=== PATIENT | male | born 1950 | race Caucasian/White ===

== ENCOUNTER 2018-01-27 11:01 | Observation (INO) | payer MEDICARE, BC ==
[2018-01-26 17:45] LABS: BASOPHILS # (AUTO) 0.1 (0.0-0.1); BASOPHILS % 0.9 % (0.0-1.0); EOSINOPHILS # (AUTO) 0.3 (0.0-0.4); EOSINOPHILS % 2.8 % (0.0-6.0); HEMATOCRIT 44.2 % (38.2-49.6); HEMOGLOBIN 15.7 g/dL (14.0-18.0); LYMPHOCYTES # (AUTO) 2.8 (1.0-3.2); LYMPHOCYTES % 31.9 % (18.0-39.1); MEAN CORPUSCULAR HGB CONC 35.5 g/dL (31-35); MEAN CORPUSCULAR VOLUME 98.7 fL (81-99); MONOCYTES # (AUTO) 0.6 (0.2-0.8); MONOCYTES % 6.5 % (4.4-11.3); NEUTROPHILS # (AUTO) 5.1 (2.1-6.9); NEUTROPHILS % 57.6 % (38.7-80.0); PLATELET COUNT 149 x10e3/uL (140-360); RED BLOOD COUNT 4.48 x10e6/uL (4.3-5.7); RED CELL DISTRIBUTION WIDTH 12.9 % (11.7-14.4)
[2018-01-26 17:55] LABS: INR 1.02; PROTHROMBIN TIME 12.6 seconds (11.9-14.5)
[2018-01-26 17:56] LABS: PARTIAL THROMBOPLASTIN TIME 26.9 seconds (23.8-35.5)
--- NOTE | 2018-01-26 18:11 | Diagnostic Imaging Report ---
PROCEDURE: Frontal and lateral views of the chest. COMPARISON: None. INDICATIONS: PRE OP LUMBAR LAMINECTOMY FINDINGS: Lines/tubes: None. Lungs: The lungs are well inflated and clear. There is no evidence of pneumonia or pulmonary edema. Pleura: There is no pleural effusion or pneumothorax. Heart and mediastinum: The heart and the mediastinum are normal. Bones: No acute bony abnormality. IMPRESSION: 1. No acute cardiopulmonary abnormality. Luis Sandoval M.D. Dictated by: Luis Sandoval M.D. on 01/26/2018 at 18:12 Electronically approved by: Luis Sandoval M.D. on 01/26/2018 at 18:12
[~2018-01-27] VITALS: Ht 182.9 cm; Wt 90.0 kg
[~2018-01-27 11:01] MED LIST: ALLOPURINOL100 MG PO; BIOTIN2500 MCG PO; ESIDRIX25 MG PO; GLUCOSA-CHOND-1 EACH PO; LIDOCAINE HCL (LTA) 4 ML SOLN ONE; LYSINE500 MG PO; OMEPRAZOLE40 MG PO; PHILLIPS' COLO1 EACH PO; POTASSIUM CHLO20 ME1 PO
--- OUTSIDE RECORDS SUMMARY | 2018-01-27 11:04 | XMS REPORT ---
Author Author [facility] Address Unknown Phone Unavailable Care Team Providers Care Bowling Alley Manager Name Role Phone EDUARDO BAUGH Unavailable Unavailable Problems This patient has no known problems. Allergies, Adverse Reactions, Alerts This patient has no known allergies or adverse reactions. Medications This patient has no known medications. Results Test Description Test Time Test Comments Text Results Atomic Results Result Comments CHEST 2 VIEWS [place] [address] Patient Name: DAMARIS LEYVA MR #: [id number] : 1950 Age/Sex: 67/M Req # : [id number] Adm Physician: Ordered by: EDUARDO BAUGH MD Report #: [id number] Location: OR Room/Bed: Procedure: [id number] DX/CHEST 2 VIEWS Exam Date: 01/26/18 Exam Time: 1750 REPORT STATUS: Signed PROCEDURE: Frontal and lateral views of the chest. COMPARISON: None. INDICATIONS: PRE OP LUMBAR LAMINECTOMY FINDINGS: Lines/tubes: None. Lungs: The lungs are well inflated and clear. There is no evidence of pneumonia or pulmonary edema. Pleura: There is no pleural effusion or pneumothorax. Heart and mediastinum: The heart and the mediastinum are normal. Bones: No acute bony abnormality. IMPRESSION: 1. No acute cardiopulmonary abnormality. Ton Sandoval M.D. Dictated by: Ton Sandoval M.D. on 01/26/2018 at 18:12 Electronically approved by: Ton Sandoval M.D. on 01/26/2018 at 18:12 Dictated By: TON SANDOVAL MD 11 Transcribed By: IVANA on 01/26/181811 COPY TO: EDUARDO BAUGH MD
[2018-01-27] MEDS ORDERED: CEFAZOLIN SOD 2 GM/D5W 50ML 50 ML IV ONE (11:08)
[2018-01-27] MEDS ORDERED: BACITRACIN 50,000 UNIT VIAL ONE (11:17)
[2018-01-27] MEDS ORDERED: THROMBIN FOR SOLN 5,000 UNIT VIAL ONE (11:17)
[2018-01-27] MEDS ORDERED: GELATIN SPONGE SZ 100 ONE (11:17)
[2018-01-27] MEDS ORDERED: BUPIVACAINE 0.5%/EPI 30 ML SDV INJ ONE (11:17)
[2018-01-27 11:37] LABS: ANION GAP 15.8 mmol/L (8-16); BLOOD UREA NITROGEN 5 mg/dL (7-26); BUN/CREATININE RATIO 6 (6-25); CALCIUM 9.2 mg/dL (8.4-10.2); CARBON DIOXIDE 24 mmol/L (22-29); CHLORIDE 104 mmol/L (98-107); CREATININE, SERUM 0.82 mg/dL (0.72-1.25); EST GLOMERULAR FILTRATION RATE > 60 ML/MIN (60-); GLUCOSE 129 mg/dL (74-118); POTASSIUM 3.8 mmol/L (3.5-5.1); SODIUM 140 mmol/L (136-145)
[2018-01-27] MEDS: LACTATED RINGER'S 1,000 ML IV SCH ×2 (14:01→22:21)
[2018-01-27] MEDS ORDERED: MAGNESIUM/ALUMINUM/SIMETHICONE 30 ML UDC PO PRN (14:15)
[2018-01-27] MEDS ORDERED: MORPHINE SULFATE 5 MG/ML VIAL IM PRN (14:15)
[2018-01-27] MEDS ORDERED: ACETAMINOPHEN 325 MG TAB PO PRN (14:15)
[2018-01-27] MEDS ORDERED: PROMETHAZINE HCL (IM) 25 MG/ML VIAL IM PRN (14:15)
[2018-01-27] MEDS ORDERED: ONDANSETRON HCL INJ 2 MG/ML VIAL IV PRN (14:15)
[2018-01-27] MEDS ORDERED: ZOLPIDEM TARTRATE 5 MG TAB PO PRN (14:15)
[2018-01-27] MEDS ORDERED: FENTANYL CITRATE/PF 100MCG/2 ML INJ ONE ×2 (14:21→18:01)
[2018-01-27] MEDS ORDERED: ONDANSETRON HCL 4 MG ORAL DISINTEGRATING TAB PO PRN (14:30)
[2018-01-27] MEDS ORDERED: MORPHINE SULFATE 2 MG/ML SYR IM PRN (14:30)
--- NOTE | 2018-01-27 14:42 | Operative Report ---
DATE OF PROCEDURE: January 27, 2018 PREOPERATIVE DIAGNOSIS: Right L4-L5 disk herniation with radiculopathy, M51.16. POSTOPERATIVE DIAGNOSIS: Right L4-L5 disk herniation with radiculopathy, M51.16. PROCEDURES: Right L4-L5 laminotomy, medial facetectomy, and microsurgical diskectomy. ANESTHESIA: General. INDICATIONS: Patient is a 67-year-old man who presents with intractable right L5 radiculopathy due to a right L4-5 chronic disk herniation who was taken to operating room for microsurgical diskectomy. PROCEDURE: After induction of general anesthesia, the patient was placed on the operating table in prone position over a Justyn frame. Lumbar region was prepped and draped in sterile fashion. A preoperative x-ray was obtained. A small paramedian incision was created and the lumbar fascia was opened the right of midline to expose the underlying L4-L5 laminae and the medial aspect of the L4-L5 facet joint. A 2nd x-ray confirmed correct localization. The operating microscope was brought in. A high-speed drill equipped with angelica bur was used to drill the inferior aspect of lamina of L4, the superior rim of the lamina of L5 and the medial aspect of L4-L5 hypertrophic facet joint. The ligamentum flavum was resected and the dural sac and L5 nerve root were fully exposed. The nerve root was clearly stretched over an underlying paramedian and subarticular disk herniation. The nerve root was gently retracted medially. Epidural veins were bipolar coagulated and divided with microscissors. The posterior longitudinal ligament and posterior annulus of the disk were incised with a number 11 blade. The subligamentous disk herniation was retrieved and removed with a micro ball probe and micro pituitary rongeurs. The osteophyte edges on each side of the disk were then fractured with a down-angled curette and delivered into the disk space from where they were removed with a micro pituitary rongeur. This allowed better access into the disk space and the loose contents of the L4-L5 disk were then evacuated with curettes and pituitary rongeurs. A ball probe was then passed in the ventral epidural space more medially and used to deliver the residual subligamentous paramedian portion of the disk herniation out where it was removed. An up-angled pituitary was used to resect the remaining portion of the disk herniation in the paramedian location. Excellent decompression was achieved. The wound was irrigated with Bacitracin solution. Meticulous hemostasis was secured. Retractor was removed. The lumbar fascia was closed with 0 Vicryl sutures. Subcutaneous layer was closed with 2-0 Vicryl sutures. The skin was closed with 3-0 Monocryl sutures in subcuticular fashion. Steri strips and dressing were applied. The patient was awakened, extubated and taken to post anesthesia care unit in stable condition. No intraoperative complications were encountered. Estimated blood loss was 10 mL. Job#: [id number] HILARY
[2018-01-27] MEDS: OXYCODONE/ACETAMINOPHEN 5-325 1 EACH TABLET PO PRN ×3 (15:08→22:30)
[2018-01-27] MEDS: CARISOPRODOL 350 MG TAB PO PRN (15:08)
[2018-01-27 15:22] VITALS: BP 121/84
[2018-01-27 15:40] VITALS: BP 121/84
[2018-01-27] MEDS ORDERED: PROPOFOL IV EMULSION 10 MG/ML 20 ML VIAL ONE (17:49)
[2018-01-27] MEDS ORDERED: GLYCOPYRROLATE INJ 1MG/ 5 ML SYR ONE (17:49)
[2018-01-27] MEDS ORDERED: NEOSTIGMINE 5 MG/5ML SYR ONE (17:49)
[2018-01-27] MEDS ORDERED: DEXAMETHASONE SOD PHOS INJ 4 MG/ML VIAL ONE (17:49)
[2018-01-27] MEDS ORDERED: LIDOCAINE HCL 2% LOCAL INJ 5 ML SDV VIAL INJ ONE (17:49)
[2018-01-27] MEDS ORDERED: ROCURONIUM BROMIDE 10 MG/ML 5ML VIAL ONE (17:49)
[2018-01-27] MEDS ORDERED: ONDANSETRON HCL INJ 2 MG/ML VIAL ONE (17:49)
[2018-01-27] MEDS ORDERED: SEVOFLURANE INHAL SOLN 250 ML PEN BTL ONE (17:49)
[2018-01-27] MEDS ORDERED: MIDAZOLAM HCL 2 MG/2 ML VIAL ONE (18:01)
[2018-01-27 19:30] VITALS: BP 121/77
[2018-01-27] MEDS: HYDROMORPHONE 2MG/ML INJ IV PRN (19:41)
[2018-01-27 20:41] VITALS: BP 121/77
[2018-01-27] MEDS: CEFAZOLIN SOD 1 GM VIAL IV SCH (21:10)
[2018-01-27] MEDS ORDERED: CEFAZOLIN SOD 1 GM/NS 50ML 50 ML IV SCH (22:00)
[2018-01-28 00:10] VITALS: BP 110/72
[2018-01-28] MEDS ORDERED: HYDROMORPHONE 1MG/1ML INJ ONE (01:59)
[2018-01-28] MEDS: HYDROMORPHONE 2MG/ML INJ IV PRN ×2 (02:08→09:13)
[2018-01-28 05:15] VITALS: BP 103/64
[2018-01-28] MEDS: LACTATED RINGER'S 1,000 ML IV SCH ×2 (05:42→15:01)
[2018-01-28] MEDS: CEFAZOLIN SOD 1 GM VIAL IV SCH ×2 (06:07→14:04)
[2018-01-28] MEDS: OXYCODONE/ACETAMINOPHEN 5-325 1 EACH TABLET PO PRN (06:24)
[2018-01-28] MEDS ORDERED: NORCO 7.5-3251 EACH PO (07:23)
[2018-01-28 08:28] VITALS: BP 102/61
[2018-01-28] MEDS ORDERED: HYDROCHLOROTHIAZIDE 25 MG TAB PO SCH (09:00)
[2018-01-28] MEDS ORDERED: ALLOPURINOL 100 MG TAB PO SCH (09:00)
[2018-01-28] MEDS ORDERED: POTASSIUM CHLORIDE 20 MEQ TAB CR PO SCH (09:00)
[2018-01-28] MEDS ORDERED: PANTOPRAZOLE SOD 40 MG TABEC PO SCH (09:00)
[2018-01-28] MEDS: CARISOPRODOL 350 MG TAB PO PRN (09:22)
[2018-01-28 09:27] VITALS: BP 102/61
[2018-01-28] MEDS ORDERED: DIAZEPAM 5 MG TAB PO PRN (10:30)
[2018-01-28 11:56] VITALS: BP 111/75
[2018-01-28] MEDS ORDERED: MORPHINE SULFATE 5 MG/ML VIAL IM PRN (14:45)
== END 2018-01-28 15:45 | disposition home or self-care (01) ==
LOC: OR 11:01 → IMCU 14:50
PROVIDERS: ADMIT Neurological Surgery; ATTEND Neurological Surgery
DX: M51.16 Intervertebral disc disorders with radiculopathy, lumbar region (principal); F17.210 Nicotine dependence, cigarettes, uncomplicated; Z88.2 Allergy status to sulfonamides; Z88.7 Allergy status to serum and vaccine; K21.9 Gastro-esophageal reflux disease without esophagitis; F10.10 Alcohol abuse, uncomplicated
CPT/HCPCS: 36415 ×2; 63047; 71046; 72020; 80048; 85025; 85610; 85730; 86850; 86900; 88304; 93005; G0378 ×2; J0690 ×2; J1100; J1170 ×3; J2001; J2250; J2270 ×2; J2405